=== PATIENT | female | born 1970 | race American Indian/Alaskan Native ===

== ENCOUNTER 2016-06-20 13:25 | Emergency (ER) | payer SELFPAY ==
--- NOTE | 2016-06-20 16:31 | Emergency Department Report ---
Entered by JAZMIN ALANIZ, acting as scribe for ARTEM ALEJANDRE FNP. - General Chief Complaint: Upper Respiratory Infection Stated Complaint: CHILLS/HEADACHES/BODY/COUGH/CONGESTION Source: patient Mode of arrival: Ambulatory Limitations: No Limitations - History of Present Illness Initial Comments: 45 y/o female with PMHx of HTN, presents to the ED c/o productive cough with clear mucus beginning suddenly yesterday. Associated symptoms of chills, subjective fever, body aches, nasal congestion, and rhinorrhea. No alleviation of the symptoms with OTC wanda-seltzer plus. MD Complaint: fever (subjective), cough (productive with clear mucus), rhinorrhea, nasal congestion -: Sudden, days(s) (1 day ago, yesterday) Severity: moderate Consistency: constant Improves With: nothing, other (no alleviation of the symptoms with OTC wanda seltzer) Worsens With: nothing Associated Symptoms: fever (subjective), chills, myalgias, rhinorrhea, nasal congestion. denies: abdominal pain, nausea, vomiting Treatments Prior to Arrival: "cold medicine" (wanda-seltzer cold plus) - Related Data Previous Rx's Medication Instructions Recorded Last Taken Type Amoxicillin/K Clav Tab [Augmentin 1 tab PO Q12HR #14 tab 06/20/16 Unknown Rx 875 mg] Ibuprofen [Motrin] 800 mg PO Q8HR PRN #30 tablet 06/20/16 Unknown Rx Allergies Allergy/AdvReac Type Severity Reaction Status Date / Time No Known Allergies Allergy Unverified 06/20/16 13:55 ED Review of Systems Comment: All other systems reviewed and negative Constitutional: chills, fever ENT: congestion, other (rhinorrhea) Respiratory: cough (productive with clear mucus). denies: shortness of breath Cardiovascular: denies: chest pain Gastrointestinal: denies: abdominal pain, nausea, vomiting ED Past Medical Hx - Past Medical History Hx Hypertension: Yes - Surgical History Additional Surgical History: - Social History Smoking Status: Current Every Day Smoker Substance Use Type: None - Medications Home Medications: Home Medications Medication Instructions Recorded Confirmed Last Taken Type Amoxicillin/K Clav Tab [Augmentin 1 tab PO Q12HR #14 tab 06/20/16 Unknown Rx 875 mg] Ibuprofen [Motrin] 800 mg PO Q8HR PRN #30 tablet 06/20/16 Unknown Rx ED Physical Exam - General Limitations: No Limitations General appearance: alert, in no apparent distress - Head Head exam: Present: atraumatic, normocephalic - Eye Eye exam: Present: normal appearance - ENT ENT exam: Present: mucous membranes moist - Expanded ENT Exam Expanded TM/Canal exam: Effusion: Right TM, Left TM Mouth exam: Absent: drooling, trismus Throat exam: Positive: tonsillar exudate - Neck Neck exam: Present: normal inspection - Respiratory Respiratory exam: Present: normal lung sounds bilaterally. Absent: respiratory distress - Cardiovascular Cardiovascular Exam: Present: regular rate, normal rhythm. Absent: systolic murmur, diastolic murmur, rubs, gallop - GI/Abdominal GI/Abdominal exam: Present: soft, normal bowel sounds - Extremities Exam Extremities exam: Present: normal inspection - Back Exam Back exam: Present: normal inspection - Neurological Exam Neurological exam: Present: alert, oriented X3 - Psychiatric Psychiatric exam: Present: normal affect, normal mood - Skin Skin exam: Present: warm, dry, intact, normal color. Absent: rash - Other Other exam information: GENERAL: The patient is well-developed and well-nourished. Patient is in NAD. HEAD: Normocephalic. Atraumatic. no maxillary or frontal sinus tenderness with percussion EYES: Extraocular motions are intact, PERRL. EARS: External auditory canals clear bilaterally. Fluid bilateral TM's; hearing grossly intact. NOSE: Nasal congestion noted. THROAT:Post nasal drip, tonsils are bilaterally erythematous NECK: Supple, nontender, without lymphadenopathy. No meningitic signs are noted. CHEST/LUNGS: Clear to auscultation throughout. HEART/CARDIOVASCULAR: Regular rate and rhythm. No murmurs, rubs or gallops. ABDOMEN: Abdomen is soft, nontender. Bowel sounds normoactive. No guarding or rebound tenderness. EXTREMITIES: No cyanosis, clubbing or edema. Peripheral pulses intact. Capillary refill less than 2 seconds. NEURO: Alert and oriented x 3. Normal gait. ED Course Vital Signs 06/20/16 13:56 Temperature 99.4 F Pulse Rate 81 Respiratory 19 Rate Blood Pressure 134/95 O2 Sat by Pulse 98 Oximetry ED Medical Decision Making - Medical Decision Making 45 y/o female presents complaining of productive cough beginning yesterday. Patient is in no acute distress at this time. She will be discharged home with a prescription for sinusitis.influenza A and B negative. ] and is encouraged to follow up with a primary care provider. She is encouraged to return to the emergency room for any worsening symptoms. ED Disposition Clinical Impression: Sinusitis Qualifiers: Sinusitis location: frontal Chronicity: acute Recurrence: non-recurrent Qualified Code(s): J01.10 - Acute frontal sinusitis, unspecified Disposition: DISCHARGED TO HOME OR SELFCARE Is pt being admited?: No Does the pt Need Aspirin: No Condition: Stable Instructions: Sinusitis (ED) Prescriptions: Amoxicillin/K Clav Tab [Augmentin 875 mg] 1 tab PO Q12HR #14 tab Ibuprofen [Motrin] 800 mg PO Q8HR PRN #30 tablet PRN Reason: Pain , Severe (7-10) Referrals: PRIMARY CARE,MD [Primary Care Provider] - 3-5 Days Forms: Work/School Release Form(ED) Time of Disposition: 17:46 This documentation as recorded by the CORBIN zepeda GRACE,accurately reflects the service I personally performed and the decisions made by PILI fang DENETRA L, FNP.
[2016-06-20 18:11] VITALS: BP 131/90
== END 2016-06-20 18:10 | disposition home or self-care (01) ==
LOC: ED 13:25
DX: J01.10 Acute frontal sinusitis, unspecified (principal); I10 Essential (primary) hypertension; F17.200 Nicotine dependence, unspecified, uncomplicated
CPT/HCPCS: 87400; 99282

== ENCOUNTER 2016-07-31 00:52 | Emergency (ER) | payer OTHER ==
[2016-07-31 01:15] VITALS: BP 146/103
[2016-07-31 01:38] LABS: Basophils % (Auto) 0.7 % (0.0-1.8); Eosinophils % (Auto) 2.3 % (0.0-4.3); Hematocrit 39.6 % (30.3-42.9); Hemoglobin 12.8 gm/dl (10.1-14.3); Mean Corpuscular HGB Conc 32 % (30-34); Mean Corpuscular Hemoglobin 28 pg (28-32); Mean Corpuscular Volume 87 fl (79-97); Platelet Count 197 K/mm3 (140-440); Red Blood Count 4.55 M/mm3 (3.65-5.03); Red Cell Distribution Width 14.4 % (13.2-15.2); White Blood Count 5.7 K/mm3 (4.5-11.0)
[2016-07-31 01:49] LABS: Anion Gap 16 mmol/L; Blood Urea Nitrogen 12 mg/dL (7-17); Carbon Dioxide 22 mmol/L (22-30); Chloride 105.8 mmol/L (98-107); Glucose 114 mg/dL (65-100); Potassium 3.9 mmol/L (3.6-5.0); Sodium 140 mmol/L (137-145)
--- NOTE | 2016-08-04 07:22 | ED Elopement Review ---
ED Pt Elopement review - Results review Lab results: Laboratory Tests 07/31/16 07/31/16 07/31/16 01:19 01:19 01:19 WBC 5.7 RBC 4.55 Hgb 12.8 Hct 39.6 MCV 87 MCH 28 MCHC 32 RDW 14.4 Plt Count 197 Lymph % (Auto) 48.3 H Dauphin % (Auto) 7.3 Eos % (Auto) 2.3 Baso % (Auto) 0.7 Lymph # 2.7 Dauphin # 0.4 Eos # 0.1 Baso # 0.0 Seg Neutrophils % 41.4 Seg Neutrophils # 2.3 Sodium 140 Potassium 3.9 Chloride 105.8 Carbon Dioxide 22 Anion Gap 16 BUN 12 Creatinine 0.5 L Estimated GFR > 60 BUN/Creatinine Ratio 24.00 Glucose 114 H Calcium 9.0 Troponin T < 0.010 HCG, Qual Negative - Call Back decision Pt Call Back Decision: No action required
== END 2016-07-31 01:15 | disposition left against medical advice (07) ==
LOC: ED 00:52
DX: R07.9 Chest pain, unspecified (principal); R06.02 Shortness of breath; Z53.21 Procedure and treatment not carried out due to patient leaving prior to being seen by health care provider
CPT/HCPCS: 36415; 80048; 84484; 84703; 85025; 93005; 93010

== ENCOUNTER 2016-07-31 16:03 | Emergency (ER) | payer OTHER ==
[2016-07-31] MEDS ORDERED: MORPHINE IV ONE (20:53)
[2016-07-31] MEDS ORDERED: APRESOLINE IV ONE (20:53)
[2016-07-31] MEDS ORDERED: NORMODYNE IV ONE (20:53)
[2016-07-31] MEDS ORDERED: ZOFRAN IV ONE (20:53)
[2016-07-31] MEDS ORDERED: MORPHINE IM ONE (20:58)
[2016-07-31] MEDS ORDERED: CATAPRES PO ONE (20:58)
[2016-07-31] MEDS ORDERED: ZOFRAN ODT PO ONE (20:58)
--- NOTE | 2016-07-31 21:00 | Emergency Department Report ---
HPI - General Chief Complaint: Chest Pain Time Seen by Provider: 07/31/16 20:52 - HPI HPI: The patient is a 46-year-old female presents for evaluation of chest pain. The patient reports constant chest pain since midnight last night, nearly 20 hours prior to my evaluationi, left-sided in location, sharp in quality, 9/10 in severity, exacerbated with taking deep breaths. The patient denies fever, trauma to the chest, cough, dyspnea, syncope, hemoptysis, unilateral leg swelling, oral contraceptive use, recent immobilization/recent surgery, history of DVT or PE, recent cancer. ED Past Medical Hx - Past Medical History Hx Hypertension: Yes - Surgical History Additional Surgical History: - Social History Smoking Status: Current Every Day Smoker Substance Use Type: None - Medications Home Medications: Home Medications Medication Instructions Recorded Confirmed Last Taken Type Cyclobenzaprine HCl [Flexeril 5 MG 5 mg PO Q8HR PRN #15 tab 07/31/16 Unknown Rx TAB] Hydrochlorothiazide [HCTZ] 25 mg PO QDAY #30 tablet 07/31/16 Unknown Rx amLODIPine [Norvasc] 5 mg PO DAILY #31 tab 07/31/16 Unknown Rx ED Review of Systems ROS: Stated complaint: CHEST PAIN/SOB Other details as noted in HPI Constitutional: denies: fever ENT: denies: throat or neck pain Respiratory: denies: cough, shortness of breath Cardiovascular: reports chest pain Endocrine: denies unexplained weight loss or gain Gastrointestinal: denies: abdominal pain, nausea Genitourinary: denies: dysuria Musculoskeletal: denies: leg swelling Skin: denies: rash Neurological: denies: headache Hematological/Lymphatic: denies: easy bleeding or easy bruising Psych: denies sadness or hopelessness Physical Exam - Physical Exam Vital Signs: Vital Signs 07/31/16 07/31/16 16:26 20:40 Temperature 98.8 F 98.6 F Pulse Rate 74 70 Respiratory 18 20 Rate Blood Pressure 145/104 Blood Pressure 165/107 [Right] O2 Sat by Pulse 98 99 Oximetry Physical Exam: General: well-nourished, well-developed, no acute distress Head: Normocephalic, atraumatic Eyes: normal sclera ENT: Mucous membranes are pink and moist Neck: trachea midline, neck supple, No neck stiffness, no cervical adenopathy Respiratory: Breath sounds equal bilaterally, no wheezing, rales, or rhonchi Cardio: S1 and S2 present, no murmurs, rubs, gallops, capillary refill is brisk Abdomen: Normoactive bowel sounds, soft abdomen, no rigidity, no guarding or rebound tenderness Musc: No pitting edema Skin: No rash Neuro: no facial drooping, normal speech Psych: Normal affect ED Course Vital Signs 07/31/16 07/31/16 16:26 20:40 Temperature 98.8 F 98.6 F Pulse Rate 74 70 Respiratory 18 20 Rate Blood Pressure 145/104 Blood Pressure 165/107 [Right] O2 Sat by Pulse 98 99 Oximetry ED Medical Decision Making - Medical Decision Making The patient was seen and examined by myself. The patient is placed on a manager gas and continuous pulse ox. On initial evaluation, the patient was found to be in no distress. EKG was negative for findings suggestive of acute cardiac infarct. Labs and imaging are obtained. The patient given a tablet of clonidine for her pressure and IM morphine for her pain. Chest x-ray is negative for pneumothorax, focal consolidation, pulmonary vascular congestion, pleural effusion, or other obvious acute cardiopulmonary disease process. Lab results were non-concerning including levels of troponin, WBC, hemoglobin, hematocrit, electrolytes, renal function. The patient was reevaluated and reported that their symptoms were markedly improved. On reexamination the patient's blood pressure was found to decrease outside of range concerning for hypertensive emergency. As the patient has a MAXINE risk score less than 2, and a well's score less than 2 and is PERC negative, the patient is at low risk of ACS or pulmonary emboli etiology of their symptoms. The patient is stable for discharge with outpatient follow-up. The patient is given follow-up and return instructions. The patient expressed understanding and agreed with the plan. The patient is discharged in stable condition. Critical care attestation.: If time is entered above; I have spent that time in minutes in the direct care of this critically ill patient, excluding procedure time. ED Disposition Clinical Impression: Acute chest pain, Hypertensive urgency Disposition: DISCHARGED TO HOME OR SELFCARE Is pt being admited?: No Does the pt Need Aspirin: No Condition: Stable Instructions: Chest Pain (ED) Prescriptions: amLODIPine [Norvasc] 5 mg PO DAILY #31 tab Cyclobenzaprine HCl [Flexeril 5 MG TAB] 5 mg PO Q8HR PRN #15 tab PRN Reason: Pain Hydrochlorothiazide [HCTZ] 25 mg PO QDAY #30 tablet Referrals: PRIMARY CARE, [Primary Care Provider] - 3-5 Days Time of Disposition: 20:54
[2016-07-31 21:25] VITALS: BP 134/81
--- NOTE | 2016-08-01 07:46 | XRay Report ---
ROUTINE CHEST, TWO VIEWS: HISTORY: Shortness of breath. The trachea, heart, mediastinal contour, lung aguilera and bony thorax are unremarkable. IMPRESSION: Unremarkable chest x-ray.
== END 2016-07-31 21:26 | disposition home or self-care (01) ==
LOC: ED 16:03
DX: R07.89 Other chest pain (principal); I16.0 Hypertensive urgency; F17.200 Nicotine dependence, unspecified, uncomplicated
CPT/HCPCS: 36415; 71020; 84484; 93005; 93010; 96372; 99284; J2270; Q0162

== ENCOUNTER 2016-11-29 16:34 | Emergency (ER) | payer SELFPAY ==
[2016-11-29 17:08] VITALS: BP 156/106
--- NOTE | 2016-11-29 17:10 | Emergency Department Report ---
Stated Complaint: LWR BACK PAIN Time Seen by Provider: 11/29/16 17:03 - HPI History of Present Illness: PT c/o low back pain x 1 month. - ROS Review of Systems: - dysuria - Exam Vital Signs: Vital Signs 11/29/16 17:03 Temperature 99.0 F Pulse Rate 76 Respiratory 16 Rate Blood Pressure 156/106 O2 Sat by Pulse 100 Oximetry Physical Exam: pt has steady gait, + midline L spine tenderness MSE screening note: Focused history and physical exam performed. Due to findings the following was ordered: xr lab ED Disposition for MSE Condition: Stable
[2016-11-29 19:13] LABS: Bacteria,Urine 1+ /HPF (Negative); Bilirubin,Urine NEG (Negative); Blood,Urine NEG (Negative); Ketones,Urine TR mg/dL (Negative); Leukocyte Esterase,Urine TR (Negative); Mucus,Urine FEW /HPF; Nitrite,Urine NEG (Negative); Protein,Urine <15 mg/dL mg/dL (Negative); Urobilinogen,Urine < 2.0 mg/dL (<2.0)
[2016-11-29] MEDS ORDERED: TORADOL IM ONE (20:23)
--- NOTE | 2016-11-29 20:24 | Emergency Department Report ---
ED Back Pain/Injury HPI - General Chief Complaint: Back Pain/Injury Stated Complaint: LWR BACK PAIN Time Seen by Provider: 11/29/16 17:03 Source: patient Limitations: No Limitations - History of Present Illness Initial Comments: This is a 46-year-old female nontoxic, well nourished in appearance, no acute signs of distress presents to the ED complaining of episode ED complaining of intermittent low back pain 1 month. Patient states she does not know how she developed back pain. She states she used to work for [employer] that weighed about 50-75 pounds. Patient denies any trauma. Denies any urinary symptoms such as dysuria, polyuria, dysuria. Denies vaginal discharge or vaginal bleeding. Denies flank pain or abdominal pain. Denies fever, chills , chest pain, shortness of breath, nausea, vomiting, headache, stiff neck, or numbness or tingling. Patient stated that pain radiates to left lower extremity. Patient denies follow-up with a primary care doctor. Patient denies any allergies. Past medical history includes hypertension. MD Complaint: back pain -: Gradual, month(s) (1) Similar Symptoms Previously: Yes Radiation: left leg Severity: mild Severity scale (0 -10): 8 Quality: aching Consistency: intermittent Improves With: none Worsens With: movement Associated Symptoms: denies other symptoms. denies: confusion, weakness, chest pain, numbness, difficulty walking, cough, difficulty urinating, diaphoresis, incontinence, fever/chills, constipation, headaches, abdominal pain, loss of appetite, malaise, nausea/vomiting, rash, seizure, shortness of breath, syncope - Related Data Previous Rx's Medication Instructions Recorded Last Taken Type Cyclobenzaprine HCl [Flexeril 5 MG 5 mg PO Q8HR PRN #15 tab 07/31/16 Unknown Rx TAB] Hydrochlorothiazide [HCTZ] 25 mg PO QDAY #30 tablet 07/31/16 Unknown Rx amLODIPine [Norvasc] 5 mg PO DAILY #31 tab 07/31/16 Unknown Rx Cyclobenzaprine [Flexeril] 10 mg PO TID PRN #15 tablet 11/29/16 Unknown Rx Ibuprofen [Motrin 600 MG tab] 600 mg PO Q8H PRN #30 tablet 11/29/16 Unknown Rx Allergies Allergy/AdvReac Type Severity Reaction Status Date / Time No Known Allergies Allergy Unverified 06/20/16 13:55 ED Review of Systems ROS: Stated complaint: LWR BACK PAIN Other details as noted in HPI Constitutional: denies: chills, fever Eyes: denies: eye pain, eye discharge, vision change ENT: denies: ear pain, throat pain Respiratory: denies: cough, shortness of breath, wheezing Cardiovascular: denies: chest pain, palpitations Endocrine: no symptoms reported Gastrointestinal: denies: abdominal pain, nausea, diarrhea Genitourinary: denies: urgency, dysuria, discharge Musculoskeletal: denies: back pain, joint swelling, arthralgia Skin: denies: rash, lesions Neurological: denies: headache, weakness, paresthesias Psychiatric: denies: anxiety, depression Hematological/Lymphatic: denies: easy bleeding, easy bruising ED Past Medical Hx - Past Medical History Hx Hypertension: Yes - Surgical History Additional Surgical History: - Social History Smoking Status: Current Every Day Smoker Substance Use Type: None - Medications Home Medications: Home Medications Medication Instructions Recorded Confirmed Last Taken Type Cyclobenzaprine HCl [Flexeril 5 MG 5 mg PO Q8HR PRN #15 tab 07/31/16 Unknown Rx TAB] Hydrochlorothiazide [HCTZ] 25 mg PO QDAY #30 tablet 07/31/16 Unknown Rx amLODIPine [Norvasc] 5 mg PO DAILY #31 tab 07/31/16 Unknown Rx Cyclobenzaprine [Flexeril] 10 mg PO TID PRN #15 tablet 11/29/16 Unknown Rx Ibuprofen [Motrin 600 MG tab] 600 mg PO Q8H PRN #30 tablet 11/29/16 Unknown Rx ED Physical Exam - General Limitations: No Limitations General appearance: alert, in no apparent distress - Head Head exam: Present: atraumatic, normocephalic, normal inspection - Eye Eye exam: Present: normal appearance, PERRL, EOMI. Absent: scleral icterus, conjunctival injection, nystagmus, periorbital swelling, periorbital tenderness Pupils: Present: normal accommodation - ENT ENT exam: Present: normal exam, normal orophraynx, mucous membranes moist, TM's normal bilaterally, normal external ear exam - Neck Neck exam: Present: normal inspection, full ROM. Absent: tenderness, meningismus, lymphadenopathy, thyromegaly - Respiratory Respiratory exam: Present: normal lung sounds bilaterally. Absent: respiratory distress, wheezes, rales, rhonchi, stridor, chest wall tenderness, accessory muscle use, decreased breath sounds, prolonged expiratory - Cardiovascular Cardiovascular Exam: Present: regular rate, normal rhythm, normal heart sounds. Absent: bradycardia, tachycardia, irregular rhythm, systolic murmur, diastolic murmur, rubs, gallop - GI/Abdominal GI/Abdominal exam: Present: soft, normal bowel sounds. Absent: distended, tenderness, guarding, rebound, rigid, diminished bowel sounds - Rectal Rectal exam: Present: deferred - Extremities Exam Extremities exam: Present: normal inspection, full ROM, normal capillary refill. Absent: tenderness, pedal edema, joint swelling, calf tenderness - Back Exam Back exam: Present: normal inspection, full ROM, paraspinal tenderness (lumbar region), vertebral tenderness (lumbar spinal tenderness). Absent: tenderness, CVA tenderness (R), CVA tenderness (L), muscle spasm, rash noted - Expanded Back Exam Expanded Back exam: Present: normal rectal tone (as per patient). Absent: saddle anesthesia Back exam: Negative Straight Leg Raising: Left, Right - Neurological Exam Neurological exam: Present: alert, oriented X3, CN II-XII intact, normal gait, reflexes normal - Psychiatric Psychiatric exam: Present: normal affect, normal mood - Skin Skin exam: Present: warm, dry, intact, normal color. Absent: rash ED Course Vital Signs 11/29/16 17:03 Temperature 99.0 F Pulse Rate 76 Respiratory 16 Rate Blood Pressure 156/106 O2 Sat by Pulse 100 Oximetry - Reevaluation(s) Reevaluation #1: 11/29/16 20:22 Patient is speaking full sentences with no signs of distress. Critical care attestation.: If time is entered above; I have spent that time in minutes in the direct care of this critically ill patient, excluding procedure time. ED Disposition Clinical Impression: Low back strain Qualifiers: Encounter type: initial encounter Qualified Code(s): S39.012A - Strain of muscle, fascia and tendon of lower back, initial encounter Disposition: TO HOME OR SELFCARE Is pt being admited?: No Does the pt Need Aspirin: No Condition: Stable Instructions: Ibuprofen (By mouth), Cyclobenzaprine (By mouth), Low Back Strain (ED) Additional Instructions: Follow-up with your primary care doctor in 3-5 days or if symptoms worsen such as bladder or bowel stability, chest pain, short of breath, numbness or tingling sensation in extremities, headache, dizziness, visual changes, nausea vomiting, or abdominal pain, return back to emergency room as was possible. Take ibuprofen and Flexeril as prescribed. Do not operate heavy machinery while taking Flexeril due to sedation Prescriptions: Cyclobenzaprine [Flexeril] 10 mg PO TID PRN #15 tablet PRN Reason: Muscle Spasm Ibuprofen [Motrin 600 MG tab] 600 mg PO Q8H PRN #30 tablet PRN Reason: Pain Referrals: PRIMARY CAREMD [Primary Care Provider] - 3-5 Days CHAVO DAMON MD [Staff Physician] - 3-5 Days [facility] [Outside] - 3-5 Days [facility] [Outside] - 3-5 Days Forms: Work/School Release Form(ED)
--- NOTE | 2016-11-29 20:26 | XRay Report ---
FINAL REPORT EXAM: XR SPINE LUMBOSACRAL 2-3V HISTORY: LOWER BACK PAIN TECHNIQUE: AP and lateral views of the lumbar spine PRIORS: None. FINDINGS: The vertebral body heights and disc spaces are well maintained. The alignment is normal. No evidence for spondylolysis or spondylolisthesis is seen. Pedicles are intact bilaterally at all levels. The paraspinal soft tissues are unremarkable. IMPRESSION: Normal lumbar spine.
== END 2016-11-29 21:17 | disposition home or self-care (01) ==
LOC: ED 16:34
DX: S39.012A Strain of muscle, fascia and tendon of lower back, initial encounter (principal); I10 Essential (primary) hypertension; F17.200 Nicotine dependence, unspecified, uncomplicated; X58.XXXA Exposure to other specified factors, initial encounter; Y93.89 Activity, other specified; Y99.8 Other external cause status; Y92.89 Other specified places as the place of occurrence of the external cause
CPT/HCPCS: 72100; 81001; 81025; 96372; 99283; J1885

== ENCOUNTER 2017-08-09 09:41 | Emergency (ER) | payer SELFPAY ==
[2017-08-09 09:49] VITALS: BP 158/105
[2017-08-09] MEDS ORDERED: ASPIRIN PO ONE (10:07)
[2017-08-09 10:35] LABS: Basophils % (Auto) 0.5 % (0.0-1.8); Eosinophils % (Auto) 0.9 % (0.0-4.3); Hematocrit 41.4 % (30.3-42.9); Lymphocytes # (Auto) 1.9 K/mm3 (1.2-5.4); Lymphocytes % (Auto) 34.1 % (13.4-35.0); Mean Corpuscular HGB Conc 34 % (30-34); Mean Corpuscular Hemoglobin 30 pg (28-32); Mean Corpuscular Volume 88 fl (79-97); Monocytes # (Auto) 0.3 K/mm3 (0.0-0.8); Monocytes % (Auto) 5.2 % (0.0-7.3); Platelet Count 218 K/mm3 (140-440); Red Blood Count 4.71 M/mm3 (3.65-5.03); Red Cell Distribution Width 14.5 % (13.2-15.2)
[2017-08-09 10:48] LABS: BUN/Creatinine Ratio 13; Blood Urea Nitrogen 9 mg/dL (7-17); Calcium 9.4 mg/dL (8.4-10.2); Hemolysis Index 7
[2017-08-09] MEDS ORDERED: ULTRAM PO ONE (12:30)
[2017-08-09] MEDS ORDERED: CATAPRES PO ONE (12:30)
[2017-08-09] MEDS ORDERED: ASPIRIN ONE (12:31)
--- NOTE | 2017-08-09 12:32 | Emergency Department Report ---
Blank Doc - Documentation Documentation: Patient is a 47-year-old female who is presenting with chest pain. Patient says left-sided chest discomfort that is aching pain was radiation to left shoulder. Patient states her blood pressures been elevated despite her taking her Norvasc 5 mg. Patient was seen and at another ER yesterday with now status E physician because of the long wait. Patient states has been no shortness of breath is no exertional component is no cough fevers chills or pleurisy. Patient has one negative troponin already an EKG was within normal limits. We'll check a second troponin to rule out GA patient also have a chest x-ray. Patient V reassessment CONG.
--- NOTE | 2017-08-09 12:40 | Emergency Department Report ---
ED Chest Pain HPI - General Chief Complaint: Chest Pain Stated Complaint: CHEST PAIN/LEFT ARM NUMBNESS Time Seen by Provider: 08/09/17 12:08 Source: patient Mode of arrival: Ambulatory Limitations: No Limitations - History of Present Illness Initial Comments: Patient is a 47-year-old female who is presenting with chest pain. Patient says left-sided chest discomfort that is aching pain was radiation to left shoulder. Patient states her blood pressures been elevated despite her taking her Norvasc 5 mg. Patient was seen and at another ER yesterday with now status E physician because of the long wait. Patient states has been no shortness of breath is no exertional component is no cough fevers chills or pleurisy. Patient has one negative troponin already an EKG was within normal limits. Patient denies any shortness of breathing and nausea of vomiting. She does admit to smoking cigarettes she also admits to not taking her hydrochlorothiazide that she was on in the past. Severity scale (0 -10): 6 - Related Data Previous Rx's Medication Instructions Recorded Last Taken Type Cyclobenzaprine HCl [Flexeril 5 MG 5 mg PO Q8HR PRN #15 tab 07/31/16 Unknown Rx TAB] Hydrochlorothiazide [HCTZ] 25 mg PO QDAY #30 tablet 07/31/16 Unknown Rx amLODIPine [Norvasc] 5 mg PO DAILY #31 tab 07/31/16 Unknown Rx Cyclobenzaprine [Flexeril] 10 mg PO TID PRN #15 tablet 11/29/16 Unknown Rx Ibuprofen [Motrin 600 MG tab] 600 mg PO Q8H PRN #30 tablet 11/29/16 Unknown Rx Amlodipine Besylate [Norvasc] 10 mg PO QDAY #30 tablet 08/09/17 Unknown Rx Hydrochlorothiazide [Hctz] 12.5 mg PO QDAY #30 capsule 08/09/17 Unknown Rx Naproxen [Naprosyn] 375 mg PO BID #20 tablet 08/09/17 Unknown Rx Allergies Allergy/AdvReac Type Severity Reaction Status Date / Time No Known Allergies Allergy Verified 08/09/17 12:13 Heart Score - HEART Score History: Moderately suspicious EKG: Normal Age: 45-65 Risk factors: 1-2 risk factors Troponin: < normal limit HEART Score: 3 ED Review of Systems ROS: Stated complaint: CHEST PAIN/LEFT ARM NUMBNESS Other details as noted in HPI Respiratory: denies: shortness of breath, SOB with exertion Cardiovascular: chest pain Endocrine: no symptoms reported Gastrointestinal: denies: abdominal pain, nausea, diarrhea Genitourinary: denies: urgency, dysuria, discharge Musculoskeletal: back pain (left back) Skin: denies: rash, lesions Neurological: denies: headache, weakness, paresthesias Psychiatric: denies: anxiety, depression Hematological/Lymphatic: denies: easy bleeding, easy bruising ED Past Medical Hx - Past Medical History Hx Hypertension: Yes - Surgical History Past Surgical History?: No Additional Surgical History: - Social History Smoking Status: Current Every Day Smoker - Medications Home Medications: Home Medications Medication Instructions Recorded Confirmed Last Taken Type Cyclobenzaprine HCl [Flexeril 5 MG 5 mg PO Q8HR PRN #15 tab 07/31/16 Unknown Rx TAB] Hydrochlorothiazide [HCTZ] 25 mg PO QDAY #30 tablet 07/31/16 Unknown Rx amLODIPine [Norvasc] 5 mg PO DAILY #31 tab 07/31/16 Unknown Rx Cyclobenzaprine [Flexeril] 10 mg PO TID PRN #15 tablet 11/29/16 Unknown Rx Ibuprofen [Motrin 600 MG tab] 600 mg PO Q8H PRN #30 tablet 11/29/16 Unknown Rx Amlodipine Besylate [Norvasc] 10 mg PO QDAY #30 tablet 08/09/17 Unknown Rx Hydrochlorothiazide [Hctz] 12.5 mg PO QDAY #30 capsule 08/09/17 Unknown Rx Naproxen [Naprosyn] 375 mg PO BID #20 tablet 08/09/17 Unknown Rx ED Physical Exam - General Limitations: No Limitations General appearance: alert, in no apparent distress - Head Head exam: Present: atraumatic, normocephalic - Eye Eye exam: Present: normal appearance - ENT ENT exam: Present: mucous membranes moist - Neck Neck exam: Present: normal inspection - Respiratory Respiratory exam: Present: normal lung sounds bilaterally, chest wall tenderness (left upper chest). Absent: respiratory distress - Cardiovascular Cardiovascular Exam: Present: regular rate, normal rhythm. Absent: systolic murmur, diastolic murmur, rubs, gallop - GI/Abdominal GI/Abdominal exam: Present: soft - Neurological Exam Neurological exam: Present: alert, oriented X3 - Psychiatric Psychiatric exam: Present: normal affect, normal mood - Skin Skin exam: Present: warm, dry, intact, normal color. Absent: rash ED Course Vital Signs 08/09/17 09:45 Temperature 98.6 F Pulse Rate 82 Respiratory 16 Rate Blood Pressure 158/105 O2 Sat by Pulse 99 Oximetry - Reevaluation(s) Reevaluation #1: 08/09/17 14:51 Patient presents she feels much better after having the Catapres and pain medication. MAXINE score - Maxine Score Age > 65: (0) No Aspirin use within the Past 7 Days: (0) No 3 or more CAD Risk Factors: (1) Yes 2 or more Angina events in past 24 hrs: (0) No Known CAD with more than 50% Stenosis: (0) No Elevated Cardiac Markers: (0) No ST Deviation Greater than 0.5mm: (0) No MAXINE Score: 1 ED Medical Decision Making - Lab Data Result diagrams: 08/09/17 10:22 08/09/17 10:22 - Radiology Data Radiology results: report reviewed, image reviewed Fluoro Time In Minutes: Chest 2 views: Compared to 07/31/16. History: Chest pain. Findings: Normal cardiomediastinal silhouette. Trachea is midline. No consolidation, pneumothorax or pleural effusion. No acute cardiopulmonary findings. Transcribed By: PTP Dictated By: CECIL SIDDIQUI MD Electronically Authenticated By: CECIL SIDDIQUI MD Signed Date/Time: 08/09/17 1240 DD/ 1240 TD/TT: 08/09/17 1240 - Medical Decision Making She's been evaluated with this provider as well as Dr. Norton. Patient had EKG within normal limits chest x-ray to within normal limits 2 negative troponins. Patient reports that she feels much better after having the Catapres and pain medication. Discussed the patient that we will increase her Norvasc to 10 mg a day at her back to hydrochlorothiazide 12.5 mg a day. Patient reports that she' s made appointment to be seen at her [facility] for next week. Discussed the patient to keep that appointment. Also encouraged patient to quit smoking as this will improve her hypertension and overall health status. Patient verbalized understanding. Critical care attestation.: If time is entered above; I have spent that time in minutes in the direct care of this critically ill patient, excluding procedure time. ED Disposition Clinical Impression: Atypical chest pain, Costochondritis, acute Hypertension Qualifiers: Hypertension type: essential hypertension Qualified Code(s): I10 - Essential ( primary) hypertension Disposition: TO HOME OR SELFCARE Is pt being admited?: No Does the pt Need Aspirin: No Condition: Stable Instructions: Chest Pain (ED), Hypertension (ED) Additional Instructions: Please take blood pressure medication as prescribed. He can take pain medication as needed. It is very important for you to follow up with your primary care provider which is at [facility]. Encouraged to stop smoking as this would benefit your hypertension and overall health status. Prescriptions: Amlodipine Besylate [Norvasc] 10 mg PO QDAY #30 tablet Hydrochlorothiazide [Hctz] 12.5 mg PO QDAY #30 capsule Naproxen [Naprosyn] 375 mg PO BID #20 tablet Referrals: PRIMARY CARE, [Primary Care Provider] - 3-5 Days [facility] [Outside] - 3-5 Days Forms: Work/School Release Form(ED)
--- NOTE | 2017-08-09 13:01 | XRay Report ---
Chest 2 views: Compared to 07/31/16. History: Chest pain. Findings: Normal cardiomediastinal silhouette. Trachea is midline. No consolidation, pneumothorax or pleural effusion. No acute cardiopulmonary findings.
== END 2017-08-09 14:42 | disposition home or self-care (01) ==
LOC: ED 09:41
DX: I10 Essential (primary) hypertension (principal); F17.200 Nicotine dependence, unspecified, uncomplicated
CPT/HCPCS: 36415; 71046; 80048; 84484; 85025; 93005; 93010; 99284

== ENCOUNTER 2019-05-10 18:05 | Emergency (ER) | payer SELFPAY ==
--- NOTE | 2019-05-10 19:35 | Event Note ---
ED Screening Note Date of service: 05/10/19 Time: 19:31 ED Screening Note: Patient c/o dysuria, suprapubic pain, vaginal discharge and vaginal itching x 2 days. Denies dyspnea, nausea, vomiting, vaginal bleeding, chest pain, dyspnea, fever and chills. Patient is aotherwise alert and oriented x 3 and is in no acute distress. This initial assessment/diagnostic orders/clinical plan/treatment(s) is/are subject to change based on patients health status, clinical progression and re- assessment by fellow clinical providers in the ED. Further treatment and workup at subsequent clinical providers discretion. Patient/guardian urged not to elope from the ED as their condition may be serious if not clinically assessed and managed. Initial orders include: UA, Pelvic exam, Wet prep, HCG urine
[2019-05-10 20:16] LABS: HCG Qualitative,Urine Negative (Negative)
[2019-05-10 20:18] LABS: Bilirubin,Urine NEG (Negative); Blood,Urine SM (Negative); Color,Urine Yellow (Yellow); Mucus,Urine 1+ /HPF; Protein,Urine <15 mg/dL mg/dL (Negative); Urobilinogen,Urine < 2.0 mg/dL (<2.0)
[2019-05-10] MEDS ORDERED: AZITHROMYCIN 250 MG TAB PO ONE (22:30)
[2019-05-10] MEDS ORDERED: LIDOCAINE-MPF (1%) 10 MG/1 ML VIAL 5 ML INFILTRATI ONE (22:30)
--- NOTE | 2019-05-10 22:32 | Emergency Department Report ---
ED Female HPI - General Chief complaint: Urogenital-Female Stated complaint: VAGINAL DISCOMFORT/PAIN Time Seen by Provider: 05/10/19 21:50 Source: patient Mode of arrival: Ambulatory Limitations: No Limitations - History of Present Illness Initial comments: This is a 48-year-old female here report that she is having painful urination, vaginal patient and discharges mild that started yesterday. She is unable to tell me if she has been exposed to an STD but wants to be treated. Urinary burning is 7 out of 10 burning with urination no burning with urination. Denies nausea vomiting, vaginal bleeding. Denies any abdominal pain. Denies any fever or chills. Denies any blood in her stool or vomitus. No medication taken right ecology emergency room. MD Complaint: vaginal discharge, dysuria, possible STD Onset/Timin -: days(s) Location: other (upon urination) Radiation: non-radiating Severity: severe Severity scale (0 -10): 7 Quality: burning Consistency: intermittent Worsens with: urination Are you Now?: No Associated Symptoms: vaginal discharge, dysuria. denies: vaginal bleeding, abdominal pain, nausea/vomiting, fever/chills, headaches, loss of appetite, hematuria, rash, seizure, shortness of breath, syncope, weakness - Related Data Sexually active: Yes Previous Rx's Medication Instructions Recorded Last Taken Type Cyclobenzaprine HCl [Flexeril 5 MG 5 mg PO Q8HR PRN #15 tab 07/31/16 Unknown Rx TAB] amLODIPine [Norvasc] 5 mg PO DAILY #31 tab 07/31/16 Unknown Rx hydroCHLOROthiazide [HCTZ] 25 mg PO QDAY #30 tablet 07/31/16 Unknown Rx Cyclobenzaprine [Flexeril] 10 mg PO TID PRN #15 tablet 11/29/16 Unknown Rx Ibuprofen [Motrin 600 MG tab] 600 mg PO Q8H PRN #30 tablet 11/29/16 Unknown Rx Amlodipine Besylate [Norvasc] 10 mg PO QDAY #30 tablet 08/09/17 Unknown Rx Naproxen [Naprosyn] 375 mg PO BID #20 tablet 08/09/17 Unknown Rx hydroCHLOROthiazide [Hctz] 12.5 mg PO QDAY #30 capsule 08/09/17 Unknown Rx Ibuprofen [Motrin] 600 mg PO Q8H PRN #20 tablet 01/24/18 Unknown Rx Ondansetron [Zofran Odt] 4 mg PO Q8HR PRN #20 tab.rapdis 01/24/18 Unknown Rx Nitrofurantoin [place]/M-Cryst 100 mg PO Q12HR 7 Days #14 capsule 05/10/19 Unknown Rx [Macrobid CAP] metroNIDAZOLE [Flagyl] 500 mg PO Q12HR 7 Days #14 tab 05/10/19 Unknown Rx Allergies Allergy/AdvReac Type Severity Reaction Status Date / Time No Known Allergies Allergy Verified 08/09/17 12:13 ED Review of Systems ROS: Stated complaint: VAGINAL DISCOMFORT/PAIN Other details as noted in HPI Constitutional: denies: chills, fever ENT: denies: throat pain, congestion Respiratory: denies: cough, shortness of breath, SOB with exertion Cardiovascular: denies: chest pain, palpitations, edema, syncope Gastrointestinal: denies: abdominal pain, nausea, vomiting, constipation, hematemesis Genitourinary: dysuria, discharge. denies: urgency, frequency, hematuria, abnormal menses, dyspareunia Musculoskeletal: denies: back pain, joint swelling, arthralgia, myalgia Skin: denies: rash Neurological: denies: headache ED Past Medical Hx - Past Medical History Previous Medical History?: Yes Hx Hypertension: Yes - Surgical History Past Surgical History?: Yes Additional Surgical History: - Family History Family history: hypertension - Social History Smoking Status: Current Every Day Smoker Substance Use Type: Marijuana - Medications Home Medications: Home Medications Medication Instructions Recorded Confirmed Last Taken Type Cyclobenzaprine HCl [Flexeril 5 MG 5 mg PO Q8HR PRN #15 tab 07/31/16 Unknown Rx TAB] amLODIPine [Norvasc] 5 mg PO DAILY #31 tab 07/31/16 Unknown Rx hydroCHLOROthiazide [HCTZ] 25 mg PO QDAY #30 tablet 07/31/16 Unknown Rx Cyclobenzaprine [Flexeril] 10 mg PO TID PRN #15 tablet 11/29/16 Unknown Rx Ibuprofen [Motrin 600 MG tab] 600 mg PO Q8H PRN #30 tablet 11/29/16 Unknown Rx Amlodipine Besylate [Norvasc] 10 mg PO QDAY #30 tablet 08/09/17 Unknown Rx Naproxen [Naprosyn] 375 mg PO BID #20 tablet 08/09/17 Unknown Rx hydroCHLOROthiazide [Hctz] 12.5 mg PO QDAY #30 capsule 08/09/17 Unknown Rx Ibuprofen [Motrin] 600 mg PO Q8H PRN #20 tablet 01/24/18 Unknown Rx Ondansetron [Zofran Odt] 4 mg PO Q8HR PRN #20 tab.rapdis 01/24/18 Unknown Rx Nitrofurantoin [place]/M-Cryst 100 mg PO Q12HR 7 Days #14 capsule 05/10/19 Unknown Rx [Macrobid CAP] metroNIDAZOLE [Flagyl] 500 mg PO Q12HR 7 Days #14 tab 05/10/19 Unknown Rx ED Physical Exam - General Limitations: No Limitations General appearance: alert, in no apparent distress - Head Head exam: Present: atraumatic, normocephalic - Eye Eye exam: Present: normal appearance, PERRL, EOMI - ENT ENT exam: Present: normal exam, normal orophraynx, mucous membranes moist - Neck Neck exam: Present: normal inspection, full ROM. Absent: tenderness, lymphadenopathy - Respiratory Respiratory exam: Present: normal lung sounds bilaterally. Absent: respiratory distress, chest wall tenderness - Cardiovascular Cardiovascular Exam: Present: regular rate, normal rhythm, normal heart sounds - GI/Abdominal GI/Abdominal exam: Present: soft, normal bowel sounds. Absent: distended, tenderness, guarding, rebound, rigid - Extremities Exam Extremities exam: Present: normal inspection, full ROM, normal capillary refill, other (No cce. + 2 pulses in all extremities, no neurovascular compromise). Absent: tenderness, pedal edema, joint swelling - Back Exam Back exam: Present: normal inspection, other (ambulate without any difficulties). Absent: full ROM, tenderness, CVA tenderness (R), CVA tenderness (L), muscle spasm, paraspinal tenderness, vertebral tenderness, rash noted - Neurological Exam Neurological exam: Present: alert, oriented X3, normal gait - Psychiatric Psychiatric exam: Present: normal affect, normal mood - Skin Skin exam: Present: warm, dry, intact, normal color. Absent: rash ED Course Vital Signs 05/10/19 05/10/19 18:09 19:34 Temperature 98 F Pulse Rate 97 H Respiratory 20 Rate Blood Pressure 134/90 O2 Sat by Pulse 100 Oximetry - Reevaluation(s) Reevaluation #1: 05/10/19 23:51 Patient's stable throughout ED course. She was treated for STD gonorrhea and chlamydia empirically as requested. Patient positive for bacterial vaginosis and negative for yeast and Trichomonas. I discussed this with patient and told her that her urinalysis shows she has small urinary tract infection and vaginal swab shows that she has bacterial vaginosis. She voiced understanding. Tolerated azithromycin 1 g and Rocephin 2 age of 52 mg in emergency room without any adverse reaction. ED Medical Decision Making - Lab Data Lab Results 05/10/19 Range/Units Unknown Urine Color Yellow (Yellow) Urine Turbidity Cloudy (Clear) Urine pH 5.0 (5.0-7.0) Ur Specific [place] 1.016 (1.003-1.030) Urine Protein <15 mg/dl (Negative) mg/dL Urine Glucose (UA) Neg (Negative) mg/dL Urine Ketones Neg (Negative) mg/dL Urine Blood Sm (Negative) Urine Nitrite Neg (Negative) Ur Reducing Substances Not Reportable Urine Bilirubin Neg (Negative) Urine Ictotest Not Reportable Urine Urobilinogen < 2.0 (<2.0) mg/dL Ur Leukocyte Esterase Tr (Negative) Urine WBC (Auto) 9.0 H (0.0-6.0) /HPF Urine RBC (Auto) 5.0 (0.0-6.0) /HPF U Epithel Cells (Auto) 11.0 (0-13.0) /HPF Urine Mucus 1+ /HPF Urine HCG, Qual Negative (Negative) Urine culture sent GC and chlamydia pending - Medical Decision Making This is a 48-year-old female here concern for vaginal discharge and urinary burning. She is fine to have acute cystitis with bacterial vaginosis. Her wet prep is negative for Trichomonas and knees positive for BV. Urine cultures pending. A and chlamydia is pending and patient chose to be treated empirically for gonorrhea and chlamydia. Pelvic exam shows that she has mild cervicitis. This is discussed the patient and she voiced understanding of lab results and diagnosis. She was treated empirically with Rocephin and Zithromax in ED without any adverse reaction. Patient discharged home with prescription for Flagyl to treat after a vaginosis and Macrobid for UTI and she is to follow-up with her primary care and if she does not have a primary care to follow up with [facility] or [facility] for repeat urinalysis. Critical care attestation.: If time is entered above; I have spent that time in minutes in the direct care of this critically ill patient, excluding procedure time. ED Disposition Clinical Impression: Vaginal discharge, Concern about STD in female without diagnosis, Bacterial vaginosis, Dysuria Disposition: TO HOME OR SELFCARE Is pt being admited?: No Does the pt Need Aspirin: No Condition: Stable Instructions: Bacterial Vaginosis (ED), Dysuria (ED), Urinary Tract Infection in Women (ED), Safe Sex (ED) Additional Instructions: Please practice safe sex Medication as prescribed and refrain from drinking alcohol while taking Flagyl as this medication when taken with alcohol can cause you to have severe stomach upset Please follow-up with your primary care physician as instructed in 2-3 days Increase her fluid intake to 2-3 L of water daily If he condition worsens, return to the emergency room Your tests for gonorrhea and chlamydia will come back within 3-5 days. Your treated in emergency room for gonorrhea and chlamydia. Please refrain from having sexual activity for the next 14 days. Youc Will need to follow up with [facility] or your primary care doctor for urinalysis check and urinalysi Referrals: PRIMARY CARE, [Primary Care Provider] - 2-3 Days [facility] [Outside] - 7-10 days [facility] [Outside] - 7-10 days Forms: STI Treatment and Prevention, Work/School Release Form(ED)
[2019-05-11 00:16] VITALS: BP 130/82
== END 2019-05-11 00:09 | disposition home or self-care (01) ==
LOC: ED 18:05
DX: N76.0 Acute vaginitis (principal); B96.89 Other specified bacterial agents as the cause of diseases classified elsewhere; R30.0 Dysuria; I10 Essential (primary) hypertension; Z71.1 Person with feared health complaint in whom no diagnosis is made; F17.200 Nicotine dependence, unspecified, uncomplicated; F12.10 Cannabis abuse, uncomplicated; Z79.1 Long term (current) use of non-steroidal anti-inflammatories (NSAID); Z79.899 Other long term (current) drug therapy; Z98.890 Other specified postprocedural states
CPT/HCPCS: 81001; 81025; 87086; 87210; 87591; 96372; 99284; J0696

== ENCOUNTER 2020-01-27 12:26 | Emergency (ER) | payer SELFPAY | END 2020-01-27 16:55 | disposition left against medical advice (07) | LOC: ED 12:26 | DX: Z53.21 Procedure and treatment not carried out due to patient leaving prior to being seen by health care provider (principal) ==

== ENCOUNTER 2020-08-01 12:49 | Emergency (ER) | payer OTHER ==
[2020-08-01 13:56] VITALS: BP 116/79
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
== END 2020-08-01 16:48 | disposition home or self-care (01) ==
LOC: ED 12:49
DX: S29.012A Strain of muscle and tendon of back wall of thorax, initial encounter (principal); S16.1XXA Strain of muscle, fascia and tendon at neck level, initial encounter; I10 Essential (primary) hypertension; F17.200 Nicotine dependence, unspecified, uncomplicated; F12.90 Cannabis use, unspecified, uncomplicated; Z98.890 Other specified postprocedural states; Z79.899 Other long term (current) drug therapy; V49.59XA Passenger injured in collision with other motor vehicles in traffic accident, initial encounter; Y92.410 Unspecified street and highway as the place of occurrence of the external cause; Y93.89 Activity, other specified; Y99.8 Other external cause status
CPT/HCPCS: 99283